=== PATIENT | male | born 1950 | race Caucasian/White ===

== ENCOUNTER → 2017-04-17 | Outpatient (CLI) | payer MEDICARE, OTHER ==
[~2017-04-17] MED LIST: ALLERGY PILL; ALLERGY10 M1; ATROVENT HFA12.9 G1 IH; BLOOD PRESSURE PILL PO; CORTISPORIN-TC10 M1 AS; HYDROXYZINE HCL25 M1 PO; ZITHROMAX PO
--- NOTE | ~2017-04-17 | CR63 ---
[facility] A Service of [facility] & [facility] RADIOLOGY TEXT RESULTS PATIENT: LOREN DUKE JR LOCATION: [facility] : 54 UNIT #: [id number] AGE: [address]: MAK PATEL APRN SEX: M ORDER DR: [id number] [place] [id number] O MR#: [id number] Acc #: [id number] NAME: LORNE DUKE : 1950 SEX: M STUDY DATE/TIME: 04/17/2017 14:35 UNIT: [facility] ROOM: STUDY DESCRIPTION: CR Chest 2 View Attending Physician: Mak Patel A.P.R.N. Referring Physician: Mak Patel A.P.R.N. Ordering Physician: Mak Patel A.P.R.N. Primary Care Physician: Eldon Carr A.P.R.N. MEDICAL IMAGING REPORT This report is preliminary unless electronic signature is present. EXAM Two-view chest INDICATIONS Tobacco abuse. Smoking history. COPD. FINDINGS PA and lateral views of the chest compared to 03/16/2011. Heart and mediastinal contours are normal. Lungs are clear. There is background COPD. No pleural effusion. IMPRESSION Background COPD. No acute findings. Dictated by... Drew Haynes M.D. THIS IS AN ELECTRONICALLY VERIFIED REPORT Drew Haynes M.D. at 04/18/2017 8:07 AM C/donna TD: 04/18/2017 00:59 JOB #: [id number] MEDICAL IMAGING REPORT Page 1 of 1
== END | disposition home or self-care (01) ==
LOC: SRAD 14:31
DX: J44.9 Chronic obstructive pulmonary disease, unspecified (principal); Z71.6 Tobacco abuse counseling
CPT/HCPCS: 71020